=== PATIENT | male | born 1965 | race Hispanic/Latino ===

== ENCOUNTER 2021-07-15 09:28 | Emergency (ER) | payer SELFPAY ==
[~2021-07-15] VITALS: Ht 175.3 cm; Wt 81.6 kg
[2021-07-15 10:34] LABS: BASOPHILS % (AUTO) 0.4 % (0.0-5.0); EOSINOPHILS % (AUTO) 0.7 % (0.0-8.0); HEMATOCRIT 50.2 % (42-54); LYMPHOCYTES % (AUTO) 30.5 % (21.0-51.0); MEAN CORPUSCULAR HEMOGLOBIN 29.2 pg (27.0-33.0); MEAN CORPUSCULAR HGB CONC 33.1 g/dL (32.0-36.0); MEAN CORPUSCULAR VOLUME 88.4 fL (79-99); MONOCYTES % (AUTO) 6.4 % (3.0-13.0); NEUTROPHILS % (AUTO) 61.9 % (40.0-77.0); PLATELET COUNT (AUTO) 268 K/uL (130-400); RED BLOOD CELL COUNT(AUTO) 5.68 MIL/uL (4.50-6.20); RED CELL DISTRIBUTION WIDTH 12.8 % (11.0-15.5); WHITE BLOOD COUNT (AUTO) 7.2 K/uL (4.8-10.8)
[2021-07-15 10:35] LABS: POTASSIUM 3.7 mmol/L (3.5-5.1)
[2021-07-15 10:39] LABS: ALBUMIN 4.2 g/dL (3.5-5.0); BILIRUBIN,TOTAL 0.9 mg/dL (0.2-1.0)
[2021-07-15] MEDS ORDERED: HYD25 PO (12:11)
[2021-07-15 12:12] VITALS: BP 148/93
== END 2021-07-15 12:25 | disposition home or self-care (01) ==
LOC: EDH 09:28
DX: R20.2 Paresthesia of skin (principal); F41.9 Anxiety disorder, unspecified
CPT/HCPCS: 36415; 70450; 71045; 80053; 84484; 85025; 93005

== ENCOUNTER 2022-08-26 11:17 | Emergency (ER) | payer OTHER, SELFPAY ==
[~2022-08-26] VITALS: Ht 172.7 cm; Wt 83.5 kg
[~2022-08-26 11:17] MED LIST: HYD25 PO
[2022-08-26] MEDS ORDERED: KETOROLAC 30MG VIAL (30MG/ML) IM ONE (13:30)
[2022-08-26 14:18] LABS: BASOPHILS % (AUTO) 0.3 % (0.0-5.0); EOSINOPHILS % (AUTO) 2.2 % (0.0-8.0); HEMATOCRIT 47.1 % (42-54); LYMPHOCYTES % (AUTO) 19.6 % (21.0-51.0); MEAN CORPUSCULAR HEMOGLOBIN 29.9 pg (27.0-33.0); MEAN CORPUSCULAR HGB CONC 34.2 g/dL (32.0-36.0); MEAN CORPUSCULAR VOLUME 87.4 fL (79-99); MONOCYTES % (AUTO) 7.9 % (3.0-13.0); NEUTROPHILS % (AUTO) 69.7 % (40.0-77.0); PLATELET COUNT (AUTO) 251 K/uL (130-400); RED BLOOD CELL COUNT(AUTO) 5.39 MIL/uL (4.50-6.20); RED CELL DISTRIBUTION WIDTH 13.1 % (11.0-15.5); WHITE BLOOD COUNT (AUTO) 8.9 K/uL (4.8-10.8)
[2022-08-26 14:32] LABS: POTASSIUM 3.9 mmol/L (3.5-5.1)
[2022-08-26 14:37] LABS: ALBUMIN 3.7 g/dL (3.5-5.0); TOTAL PROTEIN, SERUM 7.4 g/dL (6.0-8.3)
[2022-08-26] MEDS ORDERED: DICL100T85 PO (16:26)
[2022-08-26] MEDS ORDERED: METH-662 PO (16:26)
[2022-08-26 16:32] VITALS: BP 145/78
== END 2022-08-26 16:44 | disposition home or self-care (01) ==
LOC: EDH 11:17
DX: M54.50 Low back pain, unspecified (principal); Z79.899 Other long term (current) drug therapy
CPT/HCPCS: 99285; 72131; 80053; 85025; 36415; 96372; J1885